=== PATIENT | male | born 1980 | race Caucasian/White ===

== ENCOUNTER 2020-10-21 17:06 | Emergency (ER) | payer BC ==
[2020-10-21 17:13] VITALS: BP 121/72; PULSE 80; TEMP 97; BMI 29.5
[2020-10-21] MEDS ORDERED: IBUPROFEN 600 MG TABLET (FP) PO ONE ×2 (17:36→18:00)
== END 2020-10-21 19:00 | disposition home or self-care (01) ==
LOC: JERFT 17:06
DX: L03.113 Cellulitis of right upper limb (principal)
CPT/HCPCS: 73110-TC-RT-FY; 73130-TC-RT-FY; 99283-25